=== PATIENT | female | born 1990 | race Caucasian/White ===

== ENCOUNTER 2017-01-27 14:35 | Emergency (ER) | payer OTHER ==
[~2017-01-27] VITALS: Ht 167.6 cm; Wt 81.8 kg
[~2017-01-27 14:35] MED LIST: CIPRO 250MG TA250 MG PO; RISPERDAL 0.5M0.5 MG PO; ZOLOFT 100MG100 MG PO
[2017-01-27 14:42] VITALS: TEMP 99.7
[2017-01-27] MEDS ORDERED: LATUDA60 MG PO (14:48)
[2017-01-27] MEDS ORDERED: LAMICTAL XR300 MG PO (14:49)
[2017-01-27] MEDS ORDERED: BUSPAR5 MG PO (14:50)
[2017-01-27 15:20] LABS: BASO # 0.1 (0.0-0.2); BASO % 0.4 % (0.0-2.0); EOS # 0.1 (0.0-0.7); EOS % 0.7 % (0-4.0); GRAN # 9.2 (1.4-6.5); GRAN % 76.4 % (42.2-75.2); HEMATOCRIT 42.4 % (37.0-47.0); LYMPH # 1.9 (1.2-3.4); LYMPH % 15.7 % (20.0-51.0); MEAN CELL VOLUME 86 fl (80.0-100.0); MEAN CORPUSCULAR HEMOGLOBIN 29 pg (27.0-31.0); MEAN CORPUSCULAR HGB CONC 33 g/dl (33.0-37.0); MEAN PLATELET VOLUME 10.1 fl (7.4-10.4); MONO # 0.8 (0.1-0.6); MONO % 6.5 % (1.7-9.3); PLATELET COUNT 397 K/mm3 (130-400); RED BLOOD COUNT 4.91 M/mm3 (4.10-5.30); WHITE BLOOD COUNT 12.1 K/mm3 (4.8-10.8)
[2017-01-27 15:32] LABS: ADJUSTED CALCIUM 9.5 mg/dL (8.4-10.2); ALANINE AMINOTRANSFERASE 47 U/L (9-52); ALBUMIN 5.3 gm/dL (3.5-5.0); ALKALINE PHOSPHATASE 162 U/L (50-136); ANION GAP 14 mmol/L (7-16); BILIRUBIN,TOTAL 0.5 mg/dL (0.0-1.0); BLOOD UREA NITROGEN 14 mg/dL (7-17); CALCIUM 10.5 mg/dL (8.4-10.2); CARBON DIOXIDE 24 mmol/L (22-30); CHLORIDE 101 mmol/L (98-107); GLUCOSE 104 mg/dL (74-106); POTASSIUM 4.1 mmol/L (3.4-5.0); SODIUM 139 mmol/L (137-145)
[2017-01-27 15:36] LABS: ACETAMINOPHEN < 10 ug/mL (10-30); ALCOHOL(ethanol),MEDICAL < 10 mg/dL; SALICYLATE < 1.0 mg/dL
[2017-01-27 17:20] LABS: AMPHETAMINE URINE NEGATIVE; BARBITURATES URINE NEGATIVE; BENZODIAZEPINES URINE NEGATIVE; BUPRENORPHINE URINE NEGATIVE; METHADONE URINE NEGATIVE; OPIATES URINE NEGATIVE; OXYCODONE URINE NEGATIVE; PHENCYCLIDINE URINE NEGATIVE; PROPOXYPHENE URINE NEGATIVE; THC CANNABINOIDS URINE NEGATIVE; TRICYCLIC ANTIDEPRESS URINE NEGATIVE
[2017-01-28 09:36] VITALS: BP 107/67; PULSE 89
== END 2017-01-28 09:40 ==
LOC: COL.ER 14:35
PROVIDERS: Physician Assistant
DX: T14.91XA Suicide attempt, initial encounter (principal); F31.9 Bipolar disorder, unspecified; X83.8XXA Intentional self-harm by other specified means, initial encounter

== ENCOUNTER 2018-07-06 05:22 | Emergency (ER) | payer MEDICARE, OTHER ==
[~2018-07-06] VITALS: Ht 167.6 cm; Wt 99.5 kg
[~2018-07-06 05:22] MED LIST changes: +BUSPAR5 MG PO; +CEFTIN500 MG PO; +LAMICTAL XR300 MG PO; +LATUDA60 MG PO
[2018-07-06 05:25] VITALS: TEMP 97.7
[2018-07-06] MEDS ORDERED: VRAYLAR6 MG PO (05:42)
[2018-07-06] MEDS ORDERED: DESYREL 50MG50 MG PO (05:43)
[2018-07-06] MEDS ORDERED: TOPAMAX50 MG PO (05:43)
[2018-07-06] MEDS ORDERED: CEPHALEXIN500 M1 PO (05:53)
[2018-07-06 06:39] VITALS: BP 99/70; PULSE 85
== END 2018-07-06 06:45 | disposition home or self-care (01) ==
LOC: COL.ER 05:22
PROVIDERS: Emergency Medicine
DX: N64.4 Mastodynia (principal); F31.9 Bipolar disorder, unspecified; N61.0 Mastitis without abscess

== ENCOUNTER 2019-04-14 20:04 | Emergency (ER) | payer MEDICARE ==
[~2019-04-14] VITALS: Ht 167.6 cm; Wt 108.6 kg
[~2019-04-14 20:04] MED LIST changes: +CEPHALEXIN500 M1 PO; +DESYREL 50MG50 MG PO; +TOPAMAX50 MG PO; +VRAYLAR6 MG PO
[2019-04-14 20:13] VITALS: BP 133/87; PULSE 120
[2019-04-14 22:26] LABS: COLLECTION METHOD CLEAN CATCH
[2019-04-14 22:31] LABS: MUCOUS Present /lpf; PH 6 (5-8); URINE APPEARANCE Hazy; URINE BACTERIA None Seen /hpf; URINE BILIRUBIN Negative (NEGATIVE); URINE BLOOD Negative (NEGATIVE); URINE COLOR Yellow; URINE GLUCOSE Negative (NEGATIVE); URINE KETONE Negative (NEGATIVE); URINE LEUKOCYTE ESTERASE Negative (NEGATIVE); URINE NITRATE Negative (NEGATIVE); URINE PROTEIN(semi-quant) Negative (NEGATIVE); URINE RBC 0-2 /hpf; URINE UROBILINOGEN Negative (NEGATIVE)
[2019-04-14] MEDS ORDERED: ZOFRAN ODT4 MG PO (22:34)
[2019-04-14 23:00] VITALS: TEMP 98.8
== END 2019-04-14 23:05 | disposition home or self-care (01) ==
LOC: COL.ER 20:04
PROVIDERS: Physician Assistant
DX: R11.10 Vomiting, unspecified (principal); F31.9 Bipolar disorder, unspecified; F20.9 Schizophrenia, unspecified; F29 Unspecified psychosis not due to a substance or known physiological condition; F17.290 Nicotine dependence, other tobacco product, uncomplicated

== ENCOUNTER 2020-02-13 17:29 | Emergency (ER) | payer MEDICARE ==
[~2020-02-13] VITALS: Ht 167.6 cm; Wt 115.5 kg
[~2020-02-13 17:29] MED LIST changes: +GLUCOPHAGE1000 MG PO; +ZOFRAN ODT4 MG PO
[2020-02-13 17:35] VITALS: BP 117/61; TEMP 98.4
[2020-02-13 18:30] VITALS: PULSE 95
== END 2020-02-13 18:30 | disposition home or self-care (01) ==
LOC: COL.ER 17:29
DX: S89.91XA Unspecified injury of right lower leg, initial encounter (principal); F31.9 Bipolar disorder, unspecified; R56.9 Unspecified convulsions; Z79.84 Long term (current) use of oral hypoglycemic drugs; W13.3XXA Fall through floor, initial encounter; Y93.A2 Activity, calisthenics; Y92.210 Daycare center as the place of occurrence of the external cause; Y99.0 Civilian activity done for income or pay